=== PATIENT | female | born 1955 ===

== ENCOUNTER 2016-11-10 03:12 | Emergency (ER) | payer MEDICAID ==
[~2016-11-10] VITALS: Ht 157.5 cm; Wt 89.8 kg
--- NOTE | 2016-11-10 03:41 | Emergency Room Report ---
History of Present Illness General Chief Complaint: Allergies Source: Patient Present Illness HPI Is a 61-year-old female with history diabetes hypertension. She presents with chief complaint of itchy and allergic reaction. Unknown etiology. She's not on any new medication. She took Benadryl without relief. Onset occurred yesterday. She also felt short of breath and wheezing. She's been having this cold for over a month according to her daughter. She took Robitussin about a month ago and is not helping. Diagnosed with bronchitis. Never had a history of asthma. No edema or chest pain. Allergies: Coded Allergies: No Known Allergies (Unverified , 11/10/16) Patient History Past Medical History: see triage record, old chart reviewed, DM Past Surgical History: other Pertinent Family History: none Social History: Denies: smoking Last Menstrual Period: NONE Now: No : 3 Immunizations: other Reviewed Nursing Documentation: PMH: Agreed, PSxH: Agreed Nursing Documentation-PMH Hx Hypertension: Yes Review of Systems Eye: Denies: blurred vision, eye pain ENT: Denies: ear pain, nose congestion, throat swelling Respiratory: Reports: cough, shortness of breath Cardiovascular: Denies: chest pain, palpitations Gastrointestinal: Denies: abdominal pain, diarrhea, nausea, vomiting Musculoskeletal: Denies: back pain, joint pain Skin: Denies: rash Neurological: Denies: headache, numbness Endocrine: Denies: increased thirst, increased urine Hematologic/Lymphatic: Denies: easy bruising All Other Systems: negative except mentioned in HPI Physical Exam Vital Signs Date Time Temp Pulse Resp B/P Pulse Ox O2 Delivery O2 Flow Rate FiO2 11/10/16 03:20 98.2 89 18 183/91 95 Room Air vitals with hypertension Sp02 EP Interpretation: reviewed, normal General Appearance: well appearing, no apparent distress, alert Head: normocephalic, atraumatic Eyes: bilateral eye EOMI, bilateral eye PERRL ENT: hearing grossly normal, normal pharynx Neck: full range of motion, supple, no meningismus Respiratory: chest non-tender, wheezing Cardiovascular #1: regular rate, rhythm, no murmur Gastrointestinal: normal bowel sounds, non tender, no mass, no organomegaly, no bruit, non-distended Musculoskeletal: back normal, gait/station normal, normal range of motion Neurologic: alert, oriented x3 Psychiatric: mood/affect normal Skin: warm/dry, rash - Scanner urticaria mostly lower extremity Medical Decision Making Diagnostic Impression: Primary Impression: Allergic reaction Qualified Codes: T78.40XA - Allergy, unspecified, initial encounter Additional Impression: Reactive airway disease with wheezing Qualified Codes: J45.901 - Unspecified asthma with (acute) exacerbation ER Course Patient present with allergic reaction and wheezing. It appeared and wheezing been ongoing way before the allergic reaction. She fell better after breathing treatment. No evidence of anaphylaxis. We'll discharge home with steroid and Benadryl. Told patient that this may make her diabetes worse. The patient to followup in a week for recheck by her doctor. No evidence of ACS, PE, CHF or pneumonia to name a few. Lab Results Impression labs with elevated glucose Rhythm Strip Diag. Results EP Interpretation: yes Rate: 100 Rhythm: NSR, no PVC's, no ectopy Chest X-Ray Diagnostic Results EP Interpretation: Yes Findings: no consolidation, no effusion, no pneumothorax, no acute cardiopulmonary disease Number of Views: 1 Last Vital Signs Date Time Temp Pulse Resp B/P Pulse Ox O2 Delivery O2 Flow Rate FiO2 11/10/16 03:20 98.2 89 18 183/91 95 Room Air Status: improved Disposition: HOME, SELF-CARE Condition: Stable Scripts Diphenhydramine Hcl* (BENADRYL*) 25 Mg Capsule 50 MG ORAL Q6H Y for Itching, #30 CAP Prov: NGOC ROMERO M.D. 11/10/16 Prednisone* (PREDNISONE*) 20 Mg Tablet 60 MG ORAL DAILY, #12 TAB Prov: NGOC ROMERO M.D. 11/10/16 Albuterol Sulfate* (ALBUTEROL SULFATE MDI*) 8.5 Gm Hfa.aer.ad 2 PUFF INH Q4H Y for cough/wheezing, #1 EA 0 Refills Prov: NGOC ROMERO M.D. 11/10/16 Additional Instructions: Followup with your DrCarolina in 2-3 days. Return if symptom worsen. NGOC ROMERO M.D. Nov 10, 2016 03:41
[2016-11-10] MEDS ORDERED: Ipratropium 0.02% Inh Soln 2.5ml UD HHN ONE (03:45)
[2016-11-10] MEDS ORDERED: Albuterol ud Inhalation HHN ONE ×2 (03:45→04:45)
[2016-11-10] MEDS ORDERED: Solu-MEDROL 125mg Inj IVP ONE (03:45)
[2016-11-10] MEDS ORDERED: DiphenhydrAMINE 50mg/ml Inj IVP ONE (03:45)
[2016-11-10 04:11] LABS: APPEARANCE,URINE CLEAR; KETONES,URINE NEGATIVE (NEGATIVE); LEUKOCYTE ESTERASE ,URINE NEGATIVE (NEGATIVE); NITRITE,URINE NEGATIVE (NEGATIVE); PH,URINE 7 (4.5-8.0); PROTEIN,URINE NEGATIVE (NEGATIVE); UROBILINOGEN,URINE NORMAL MG/DL (0.0-1.0)
[2016-11-10 04:12] LABS: BASOPHILS % (AUTO) 0.7 % (0.0-2.0); EOSINOPHILS % (AUTO) 9.6 % (0.0-3.0); LYMPHOCYTES % (AUTO) 30.3 % (20.0-45.0); MEAN CORPUSCULAR HGB CONC 33.5 G/DL (32.0-36.0); MEAN CORPUSCULAR VOLUME 90 FL (80-99); MEAN PLATELET VOLUME 7.4 FL (6.5-10.1); MONOCYTES % (AUTO) 8.8 % (1.0-10.0); NEUTROPHILS % (AUTO) 50.7 % (45.0-75.0); PLATELET COUNT 292 K/UL (150-450); RED BLOOD COUNT 4.43 M/UL (4.20-5.40); RED CELL DISTRIBUTION WIDTH 12.9 % (11.6-14.8); WHITE BLOOD COUNT 9.3 K/UL (4.8-10.8)
[2016-11-10 04:13] LABS: RBC,URINE 0 /HPF (0 - 2); SQUAMOUS EPITHELIAL CELL,UR FEW /LPF (NONE/OCC); WBC,URINE 0 /HPF (0 - 2)
[2016-11-10 04:23] LABS: TROPONIN I < 0.30 ng/mL (<=0.30)
[2016-11-10 04:26] LABS: ANION GAP 12 (5-15); CALCIUM 9.6 mg/dL (8.6-10.2); CARBON DIOXIDE 28 mEQ/L (20-30); CHLORIDE 97 mEQ/L (98-107); CREATININE 0.7 mg/dL (0.5-0.9); GLOMERULAR FILTRATION RATE > 60 mL/min (>60); HEMOLYSIS 38; POTASSIUM 4.3 mEQ/L (3.4-4.9); SODIUM 137 mEQ/L (135-145)
[2016-11-10] MEDS ORDERED: PREDNISONE20 MG ORAL (04:42)
[2016-11-10] MEDS ORDERED: BENADRYL25 MG ORAL (04:42)
[2016-11-10] MEDS ORDERED: ALBUTEROL SULF8.5 GM INH (04:42)
[2016-11-10 05:03] VITALS: BP 158/69
[2016-11-10 05:04] VITALS: BP 158/69
--- NOTE | 2016-11-10 08:39 | Diagnostic Imaging Report ---
Indication: Shortness of breath Technique: Single AP view of the chest. Findings: Comparison: None. The apparent hemidiaphragm is mildly elevated. The bones and extra pulmonary soft tissues, cardiomediastinal silhouette, pulmonary vasculature, visualized portions of pulmonary parenchyma and pleural surfaces are unremarkable. IMPRESSION: Dilation of the apparent hemidiaphragm, nonspecific, acuity indeterminate Otherwise negative AP chest radiograph.
== END 2016-11-10 05:05 | disposition home or self-care (01) ==
LOC: EMR 04:27
DX: T78.40XA Allergy, unspecified, initial encounter (principal); X58.XXXA Exposure to other specified factors, initial encounter; J45.901 Unspecified asthma with (acute) exacerbation; R06.02 Shortness of breath; R06.2 Wheezing; E11.9 Type 2 diabetes mellitus without complications; I10 Essential (primary) hypertension; R05 Cough
CPT/HCPCS: 36415; 71010; 80048; 81001; 83880; 84484; 85025; 94640; 94664; 96374; 96375; 99284; J1200; J2930